=== PATIENT | female | born 1995 | race African-American/Black ===

== ENCOUNTER 2020-01-01 19:55 | Emergency (ER) | payer MEDICAID ==
[~2020-01-01] VITALS: Ht 167.6 cm; Wt 81.6 kg
[2020-01-01 20:03] VITALS: BP 132/84
[2020-01-01] MEDS ORDERED: LORazepam 2MG/ML-1ML VIAL IV ONE (20:15)
[2020-01-01] MEDS ORDERED: SODIUM CHLORIDE 0.9% 1,000 ML IV ONE (20:15)
== END 2020-01-01 20:57 | disposition left against medical advice (07) ==
LOC: ER 19:55 → EDBD 19:55 → ER 20:57
DX: F41.1 Generalized anxiety disorder (principal); F43.0 Acute stress reaction; R42 Dizziness and giddiness